=== PATIENT | female | born 1950 | race Caucasian/White ===

== ENCOUNTER 2020-01-27 19:08 | Emergency (ER) | payer MEDICARE, SELFPAY ==
[2020-01-27 19:27] VITALS: BP 145/83; PULSE 75; RESP 30; TEMP 37.1; O2SAT 98
--- NOTE | 2020-01-27 19:31 | ED.EYEPROB ---
HPI - Eye Problem General Chief complaint: Eye Problems Stated complaint: left eye swollen/red Time Seen by Provider: 01/27/20 19:32 Source: patient and RN notes reviewed Mode of arrival: ambulatory Limitations: no limitations History of Present Illness HPI Narrative: 69-year-old female presents with left eye irritation, redness, discharge. Reports when she wakes up in the morning her eyes digit, she needs to use a warm washcloth to remove the crust. She denies vision changes. Denies intervention for the eye irritation or redness. Denies foreign body, foreign body sensation, trauma to the eye. chief complaint: eye redness Related Data Home Medications Medication Instructions Recorded Confirmed alprazolam 01/27/20 bupropion HCl PO 01/27/20 carvedilol 01/27/20 ergocalciferol (vitamin D2) 01/27/20 furosemide 01/27/20 gabapentin 01/27/20 hydrocodone-acetaminophen tablet 01/27/20 levothyroxine 01/27/20 simvastatin mg 01/27/20 Allergies Allergy/AdvReac Type Severity Reaction Status Date / Time Sulfa (Sulfonamide Allergy Rash Verified 01/27/20 19:41 Antibiotics) Review of Systems Review of Systems: Narrative: CONSTITUTIONAL: Denies malaise, chills, sweats, or fever. EYES: Denies visual changes. Reports left eye irritation, redness, discharge. ENT: Denies rhinorrhea, congestion, sinus pain, otalgia or sore throat. CARDIOVASCULAR: Denies chest pain, palpitations, or edema. RESPIRATORY: Denies cough or dyspnea. SKIN: Denies rash or itching. NEUROLOGIC: Denies headache. All systems reviewed & are unremarkable except as noted in HPI and below PMFSH Comments At time of signature, agree with nursing past medical, surgical, social and family history. There is no relevant family history pertinent to the presenting complaint Exam Narrative: Exam Narrative: GENERAL: Well-appearing, well-nourished, and in no acute distress. HEAD: Normocephalic, atraumatic. EYES: Right eye PERRLA, conjunctivae clear. EOMI. No nystagmus. Left eye sclera conjunctive injected, crusty drainage noted ENT: Nares clear. Mucous membranes moist. NECK: Supple. CHEST: No respiratory distress. Speaks in full sentences. SKIN: Warm, dry, no rash. NEURO: Alert and oriented x3. PSYCH: Normal mood and affect Course Course Emergency Course: Patient is aware of diagnosis, understands and agrees to treatment plan. Anticipatory guidance given. Patient agrees to follow-up as directed and is aware of reasons to seek care at the emergency department. Portions of this record may have been created with voice recognition software Vital Signs Vital signs: Vital Signs Temperature 98.7 F 01/27/20 19:27 Pulse Rate 75 01/27/20 19:27 Respiratory Rate 30 H 01/27/20 19:27 Blood Pressure 145/83 H 01/27/20 19:27 Pulse Oximetry 98 01/27/20 19:27 Temperature 98.7 F 01/27/20 19:27 Pulse Rate 75 01/27/20 19:27 Respiratory Rate 30 H 01/27/20 19:27 Blood Pressure 145/83 H 01/27/20 19:27 Pulse Oximetry 98 01/27/20 19:27 Reviewed. Patient has history of hypertension MDM - Eye Problem MDM Narrative Medical decision making narrative: Consideration of the following conditions may be warranted for the presenting problem, they are not final diagnoses: Bacterial conjunctivitis, allergic conjunctivitis, viral conjunctivitis, foreign body, blepharitis, chalazion, hordeolum, corneal abrasion. Exam findings show no acute concerns or changes; patient is non-toxic appearing and is in no distress. Patient is appropriate for outpatient treatment and follow-up. Critical Care Time Critical Care Time Critical Care Time: No Discharge Plan Discharge Clinical Impression: Bacterial conjunctivitis Patient Disposition: Home, Self-Care Condition: Stable Instructions: Conjunctivitis (ED) Additional Instructions: Do not touch or rub your eye. Use a warm or cool washcloth on your eye for comfort Use eyedrops as directe
== END 2020-01-27 19:43 | disposition home or self-care (01) ==
PROVIDERS: Emergency Provider Nurse Practitioner; PCP Internal Medicine Geriatric Medicine
DX: H10.9 Unspecified conjunctivitis (principal); E78.00 Pure hypercholesterolemia, unspecified; I10 Essential (primary) hypertension; K21.9 Gastro-esophageal reflux disease without esophagitis; E11.9 Type 2 diabetes mellitus without complications
CPT/HCPCS: 99213; G0463